=== PATIENT | male | born 1995 | race Caucasian/White ===

== ENCOUNTER 2018-07-26 14:07 | Emergency (ER) | payer SELFPAY ==
--- NOTE | 2018-07-26 15:11 | ED ---
Throat Pain/Nasal Congestion - HPI Summary HPI Summary: A 22 y/o male presents to [facility] with a chief complaint of breaking a q-tip in his left ear. He denies sore throat, runny nose and fever. He denies any ear pain, rating his pain as a 0/10. - History of Current Complaint Chief Complaint: EDEarPain Time Seen by Provider: 07/26/18 14:57 Hx Obtained From: Patient Onset/Duration: Sudden Onset, Lasting Minutes, Still Present Severity: Mild Associated Signs And Symptoms: Negative: Nasal Discharge Cough: None PMH/Surg Hx/FS Hx/Imm Hx Endocrine/Hematology History: Denies: Hx Diabetes Cardiovascular History: Denies: Hx Cardiac Arrest, Hx Hypertension Infectious Disease History: No Infectious Disease History: Denies: Traveled Outside the [place] in Last 30 Days - Family History Known Family History: Negative: Cardiac Disease, Hypertension, Diabetes - Social History Lives: With Family Alcohol Use: None Hx Substance Use: No Substance Use Type: Reports: None Hx Tobacco Use: No Smoking Status (MU): Never Smoked Tobacco Review of Systems Negative: Fever ENT: Other - Positive: q-tip in ear Negative: Sore Throat, Ear Ache, Nasal Discharge All Other Systems Reviewed And Are Negative: Yes Physical Exam - Summary Physical Exam Summary: Appearance: Well appearing, no pain distress Skin: warm, dry, reflects adequate perfusion Head/face: normal Eyes: EOMI, ADÁN ENT: Totally occluded left ear canal. Right ear can see TM redness with 80% occlusion. mucous membranes moist Neck: supple, non-tender Respiratory: CTA, breath sounds present Cardiovascular: RRR, pulses symmetrical Abdomen: non-tender, soft Bowel Sounds: present Musculoskeletal: normal, strength/ROM intact Neuro: normal, sensory motor intact, A&Ox3 Triage Information Reviewed: Yes Vital Signs On Initial Exam: Initial Vitals Temp Pulse Resp BP Pulse Ox 96.5 F 78 19 150/104 94 07/26/18 14:08 07/26/18 14:08 07/26/18 14:07/26/18 14:07/26/18 14:08 Vital Signs Reviewed: Yes Procedures - Procedure Summary Procedure Summary: Cerumen impaction/foreign-body removal Irrigated right ear with saline through an 18-gauge catheter. Large amount of wax and the distal portion of the Q-tip was removed. The Q-tip was irrigated to the external os of the canal and removed with alligator forceps. The left ear was irrigated with saline and a large portion of wax was removed. He had a small amount of bleeding with this. He tolerated this well without complication. Diagnostics - Vital Signs Vital Signs Temp Pulse Resp BP Pulse Ox 07/26/18 14:08 96.5 F 78 19 150/104 94 - Laboratory Lab Statement: Any lab studies that have been ordered have been reviewed, and results considered in the medical decision making process. EENT Course/Dx - Course Course Of Treatment: Nurse's notes reviewed. Cerumen impaction bilaterally with Q-tip in the right canal. Waxes irrigated out and the Q-tip was removed. Cortisporin solution prescribed. - Differential Diagnoses Differential Diagnoses: Other - Foreign body, otitis externa, cerumen impaction - Diagnoses Provider Diagnoses: Otitis externa, Cerumen impaction, Foreign body in right ear, initial encounter Discharge - Sign-Out/Discharge Documenting (check all that apply): Patient Departure - DC - Discharge Plan Condition: Improved Disposition: HOME Prescriptions: Neomyc/Polym/HC 1% OTIC SUSP* [Cortisporin Otic Susp 1%*] 4 drop BOTH EARS TID 5 Days #1 btl Patient Education Materials: Cerumen Impaction (ED), Ear Foreign Body (ED) Referrals: Bradford Villasenor MD [Primary Care Provider] - Additional Instructions: Earwax softeners may help. Return with increased pain, drainage, fever, worse or other concerns. Follow-up with your family doctor as needed. - Billing Disposition and Condition Condition: IMPROVED Disposition: Home - Attestation Statements Document Initiated by Matthew: Yes Documenting Scribe: Jeffrey Meyer Provider For Whom Matthew is Documenting (Include Credential): Brent Corona MD Scribe Attestation: IJeffrey, scribed for Brent Corona MD on 07/26/18 at 1854. Scribe Documentation Reviewed: Yes Provider Attestation: The documentation as recorded by the Jeffrey julien accurately reflects the service I personally performed and the decisions made by me, Brent Corona MD Status of Scribe Document: Viewed
[2018-07-26 15:34] VITALS: BP 0/0
== END 2018-07-26 15:34 | disposition home or self-care (01) ==
LOC: ED 14:07
DX: H60.92 Unspecified otitis externa, left ear (principal); T16.1XXA Foreign body in right ear, initial encounter; X58.XXXA Exposure to other specified factors, initial encounter; H61.23 Impacted cerumen, bilateral; Y92.9 Unspecified place or not applicable
CPT/HCPCS: 99282

== ENCOUNTER 2019-04-29 05:34 | Emergency (ER) | payer OTHER ==
--- NOTE | 2019-04-29 06:15 | ED ---
GI/ HPI - HPI Summary HPI Summary: Patient is a 23-year-old male who presents emergency department for intermittent right-sided testicle pain 3 days. Patient denies any injury. Patient notes pain is intermittent and he feels his right testicle is twisting. Patient currently in the ER has minimal pain. He notes pain was worse primary in the car. Denies fever, chills, rash, sore throat, dysuria, penile discharge. Patient has no past medical history. Symptoms are moderate in severity. No current modifying factors. - History of Current Complaint Chief Complaint: EDUrogenitalProblems Time Seen by Provider: 04/29/19 05:53 Stated Complaint: TESTICLE PAIN PER PT Hx Obtained From: Patient Pain Intensity: 0 - Allergy/Home Medications Allergies/Adverse Reactions: Allergies Allergy/AdvReac Type Severity Reaction Status Date / Time No Known Allergies Allergy Verified 04/29/19 05:37 Home Medications: Home Medications NK [No Home Medications Reported] 04/29/19 [History Confirmed 04/29/19] PMH/Surg Hx/FS Hx/Imm Hx Previously Healthy: Yes Endocrine/Hematology History: Denies: Hx Diabetes Cardiovascular History: Denies: Hx Cardiac Arrest, Hx Hypertension Infectious Disease History: No Infectious Disease History: Denies: Traveled Outside the [place] in Last 30 Days - Family History Known Family History: Positive: Non-Contributory Negative: Cardiac Disease, Hypertension, Diabetes - Social History Occupation: Unemployed Lives: With Family Alcohol Use: None Hx Substance Use: No Substance Use Type: Reports: None Hx Tobacco Use: No Smoking Status (MU): Never Smoked Tobacco Review of Systems Constitutional: Negative Negative: Fever, Chills Positive: Epistaxis Cardiovascular: Negative Respiratory: Negative Gastrointestinal: Negative Positive: other - Testicle pain.. Negative: dysuria, discharge Skin: Negative Negative: Rash All Other Systems Reviewed And Are Negative: Yes Physical Exam Triage Information Reviewed: Yes Vital Signs On Initial Exam: Initial Vitals Temp Pulse Resp BP Pulse Ox 97.3 F 73 15 146/99 99 04/29/19 05:36 04/29/19 05:36 04/29/19 05:36 04/29/19 05:36 04/29/19 05:36 Vital Signs Reviewed: Yes Appearance: Positive: Well-Appearing - Pt. sitting up in bed in NAD. Skin: Positive: Warm, Dry Head/Face: Positive: Normal Head/Face Inspection Eyes: Positive: Normal, EOMI, ADÁN, Conjunctiva Clear ENT: Positive: Pharynx normal, TMs normal Neck: Positive: Supple Respiratory/Lung Sounds: Positive: Clear to Auscultation, Breath Sounds Present Cardiovascular: Positive: Normal, RRR Abdomen Description: Positive: Nontender, Soft Male Genital Exam: Positive: Other - Exam performed with distribution engineering technologist in room, Thaddeus. Uncircumcised penis. No erythema, edema or rashes. No testicle tenderness on exam. Neurological: Positive: Normal, CN Intact II-III Procedures - Sedation Patient Received Moderate/Deep Sedation with Procedure: No Diagnostics - Vital Signs Vital Signs Temp Pulse Resp BP Pulse Ox 04/29/19 05:36 97.3 F 73 15 146/99 99 - Laboratory Lab Statement: Any lab studies that have been ordered have been reviewed, and results considered in the medical decision making process. GIGU Course/Dx - Course Course Of Treatment: Patient with mild intermittent testicle pain. Currently having no pain. Exam unremarkable. Negative urinalysis. Pending GC and chlamydia. Testicle ultrasound shows small hydrocele on the right as well as an epididymal cyst, normal blood flow, reading per radiology. Results discussed. Advised patient to elevate scrotum and apply cool compresses. Tylenol or Motrin for pain as directed. To follow-up with PCP in 2-3 days if pain persists and return to the ER symptoms change or worsen. Patient understands and agrees with plan. - Diagnoses Differential Diagnoses - Male: Epididymitis, STD, Testicular Torsion, Urinary Tract Infection Provider Diagnoses: Testicle pain, Hydrocele, Epididymal cyst Discharge ED - Sign-Out/Discharge Documenting (check all that apply): Patient Departure - Discharge Plan Condition: Good Disposition: HOME Patient Education Materials: Hydrocele (ED), Testicle Pain (ED) Referrals: [facility] [Outside] [facility] [Outside] Additional Instructions: Schedule a close follow up appointment with PCP within one week if symptoms persist Elevate scrotum and apply cool compress to help with discomfort Return to ER if symptoms change or worsen - Billing Disposition and Condition Condition: GOOD Disposition: Home
[2019-04-29 07:34] VITALS: BP 118/80
[2019-04-29 07:44] LABS: Urine Appearance Cloudy; Urine Bilirubin Negative (Negative); Urine Blood Negative (Negative); Urine Color Yellow; Urine Glucose Negative (Negative); Urine Ketones Negative (Negative); Urine Nitrite Negative (Negative); Urine Protein Negative (Negative); Urine Specific Gravity 1.018 (1.010-1.030); Urine Urobilinogen Positive (Negative)
[2019-04-30 13:15] LABS: Chlamydia trachomatis NAA Negative (Negative); Neisseria gonorrhoeae (GC) NAA Negative (Negative)
== END 2019-04-29 08:39 | disposition home or self-care (01) ==
LOC: ED 05:34
DX: N50.811 Right testicular pain (principal); N43.3 Hydrocele, unspecified; N50.3 Cyst of epididymis
CPT/HCPCS: 76870; 81003; 87491; 87591; 99282